=== PATIENT | female | born 1940 | race Caucasian/White ===

== ENCOUNTER 2016-10-18 18:54 | Inpatient (IN) | payer OTHER ==
--- NOTE | ~2016-10-18 | US84 ---
[id number] [facility] [address] [place], [place] [address] [id number] I MR#: [id number] Acc #: [id number] NAME: CARMELO EDLGADO : 1940 SEX: F STUDY DATE/TIME: 10/19/2016 14:02 UNIT: C5B ROOM: 562 STUDY DESCRIPTION: US LE Veins Complete Yao Stdy Attending Physician: Calin Bolivar M.D. Ordering Physician: Calin Bolivar M.D. Primary Care Physician: Calin Bolivar M.D. MEDICAL IMAGING REPORT This report is preliminary unless electronic signature is present EXAM Bilateral lower extremity venous duplex. DATE OF EXAM 10/19/2016 HISTORY Bilateral lower extremity pain and swelling for 1-1/2 years. Evaluate for deep vein thrombosis. TECHNIQUE Venous ultrasound examination of both lower extremities was performed using grayscale, spectral Doppler and color flow Doppler imaging. FINDINGS The examination is negative. There is no evidence of deep venous thrombus from the groin to the lower calf bilaterally. Visualized greater saphenous veins are also patent. IMPRESSION Negative examination. No evidence of lower extremity DVT. Dictated by... Jose Luis Willard M.D. THIS IS AN ELECTRONICALLY VERIFIED REPORT Jose Luis Willard M.D. at 10/20/2016 7:56 AM KADEEM/michael TD: 10/19/2016 22:41 JOB #: [id number] MEDICAL IMAGING REPORT COPY
--- NOTE | ~2016-10-18 | DS ---
Unit #: [id number] #: [id number] Patient: CARMELO DELGADO [id number] [address] [address] [id number] I MR#: [id number] NAME: CARMELO DELGADO. ROOM: 562 Age: 76 Sex: F Admission Date: 10/18/2016 : 1940 Discharge Date: 10/26/2016 Attending Physician: Calin Bolivar M.D. Primary Care Physician: Calin Bolivar M.D. DISCHARGE SUMMARY PRINCIPAL DISCHARGE DIAGNOSES 1. Acute on chronic respiratory failure. 2. Exacerbation of chronic obstructive pulmonary disease. 3. Acute on chronic systolic congestive heart failure. 4. Chronic atrial fibrillation. 5. Acute on chronic kidney disease. 6. Opioid-induced constipation. 7. Coronary artery disease. 8. Hypertension. 9. Chronic anemia. 10. Type 2 diabetes mellitus. 11. Lumbar spinal stenosis. 12. History of rectal cancer. 13. Status post cholecystectomy. 14. Status post total abdominal hysterectomy. PROCEDURES None. CONSULTANTS None. REASON FOR HOSPITALIZATION The patient is a 76-year-old white female with history of type 2 diabetes mellitus, hypertension, chronic atrial fibrillation, chronic respiratory failure, CHF, COPD, chronic kidney disease, stage 4, coronary artery disease, chronic anemia, lumbar spinal stenosis, history of rectal cancer, presents to the emergency room with 3 days of shortness of air, cough, congestion, left pleuritic chest pain. She had been called doxycycline over the weekend when she called me with an upper respiratory infection and was on this prior to the admission. In the emergency room, she was afebrile, had a normal white count. Chest x-ray reportedly showed left lower lobe pneumonia and the patient was admitted. Hemoglobin was 10.6 on admission. Cardiac enzymes were normal. Coags were normal. Lactic acid was normal. BUN 45, creatinine 1.8, GFR 29. BNP was 480. Influenza A and B were negative. ABGs on 2 L showed a pH of 7.354, pCO2 of 48, and a PaO2 of 76. Procalcitonin was 0.06. EKG; atrial fibrillation, 79 beats per minute, left axis deviation, inferior Q-waves, and [address]-T abnormality. Chest x-ray as described above. HOSPITAL COURSE The patient was admitted to telemetry bed. Started on IV antibiotics in the form of Rocephin and Zithromax. Placed on IV Solu-Medrol. [facility] Unit #: [id number] #: [id number] Patient: CARMELO DELGADO Miah reaves. and h.s., low-dose sliding scale insulin adjusted. Urine for streptococcal and legionella antigens were negative. Bilateral lower extremity ultrasound showed no evidence of deep vein thrombosis. CT scan of the chest without contrast showed scarring at the left posterior lung base similar to prior CT scans and PET scans without any definite pneumonia or edema. There was cardiomegaly, evidence of coronary artery bypass grafting, benign multinodular goiter, thickening and low-density change in both adrenal glands, similar to 05/12/2015, consistent with hyperplasia or adenomas. The patient developed some worsening renal function. Her Lasix was held. She was started on some low-dose IV fluids. She has rapidly improved. Currently stable on p.o. prednisone and antibiotics. Being discharged home. [facility] is to follow offices in 1 week. Healthy-heart constant-carb diet. CURRENT MEDICATIONS Omnicef 300 mg b.i.d. for an additional 2 days for full 10-day course; Advair 250/50 one puff q.12; prednisone 20 mg for 3 days, then 10 mg for 3 days; Ventolin 2 puffs q.i.d. p.r.n.; sodium bicarb 650 p.o. t.i.d. with meals; Tylenol 650 p.o. q.6 hours p.r.n. for fever; Mylanta-II 30 mL p.o. q.4 hours p.r.n. for heartburn; nystatin powder topically b.i.d. to affected areas; Coreg 3.125 mg p.o. b.i.d.; Colace 100 mg b.i.d.; MiraLAX 17 g daily; O2 2L nasal cannula p.r.n. and q.h.s.; furosemide 80 mg b.i.d.; hydralazine 12.5 mg p.o. b.i.d.; Lantus 40 units subcu q.h.s.; aspirin 81 mg daily; Percocet 10/325 one q.4 hours p.r.n. for pain; KCl 10 mEq b.i.d.; Isordil 10 mg b.i.d. Please note the patient is not on an ELISABETH inhibitor despite having systolic CHF or an ARB because of her chronic kidney disease, stage 4. She is also not on anticoagulation because of her history of rectal cancer, noncompliance, chronic anemia, chronic kidney disease, and history of iron-deficiency anemia which seems to outweigh the risk of anticoagulation, which cardiology has already agreed with on an outpatient basis. DISCHARGE INSTRUCTIONS The patient will be seen in 1 week. Call in the meantime for any problems. Dictated by... Deepthi Us/tom TD: 10/27/2016 01:54 JOB #: [id number] DISCHARGE SUMMARY Page 1 of 1 X Calin Bolivar MD X DISCHARGE SUMMARY
--- NOTE | ~2016-10-18 | NM69 ---
[facility] A Service of [facility] RADIOLOGY TEXT RESULTS PATIENT: CARMELO DELGADO LOCATION: [facility] : 41 UNIT #: [id number] AGE: [address]: Calin Bolivar MD SEX: F ORDER DR: [id number] [facility] [address] [place], [place] [address] [id number] I MR#: [id number] Acc #: [id number] NAME: CARMELO DELGADO. : 1940 SEX: F STUDY DATE/TIME: 10/19/2016 13:23 UNIT: [facility] ROOM: [facility] STUDY DESCRIPTION: NM Pulm Vent and Perf Attending Physician: Calin Bolivar M.D. Ordering Physician: Calin Bolivar M.D. Primary Care Physician: Calin Bolivar M.D. MEDICAL IMAGING REPORT This report is preliminary unless electronic signature is present EXAM Ventilation/perfusion lung scan. DATE OF STUDY 10/19/2016 COMPARISON Portable chest, 10/18/2016. CLINICAL HISTORY Short of air and difficulty breathing. Chest pain for 4 days. FINDINGS Accompanying chest radiograph shows cardiomegaly but no acute infiltrate. Ventilation images show heterogeneous ventilation and fairly poor ventilation of the left lung overall. Perfusion images show matching mild heterogeneity of pulmonary perfusion, with no segmental perfusion defects. Overall, perfusion is slightly better than ventilation bilaterally. IMPRESSION Low likelihood ratio for pulmonary embolism. No segmental ventilation/perfusion mismatches. Dictated by... Sudheer Stahl M.D. THIS IS AN ELECTRONICALLY VERIFIED REPORT [facility] A Service of [facility] RADIOLOGY TEXT RESULTS PATIENT: CARMELO DELGADO LOCATION: [facility] : 41 UNIT #: [id number] AGE: [address]: Calin Bolivar MD SEX: F ORDER DR: Sudheer Stahl M.D. at 10/21/2016 3:43 PM TEV/jt TD: 10/19/2016 19:49 JOB #: [id number] MEDICAL IMAGING REPORT COPY
--- NOTE | ~2016-10-18 | CT57 ---
[facility] A Service of [facility] RADIOLOGY TEXT RESULTS PATIENT: TRINY DELGADO LOCATION: [facility] 562-01 : 41 UNIT #: [id number] AGE: [address]: Calin Bolivar MD SEX: F ORDER DR: [id number] [facility] [address] [place], [place] [address] [id number] I MR#: [id number] Acc #: [id number] NAME: TRINY DELGADO : 1940 SEX: F STUDY DATE/TIME: 10/19/2016 09:06 UNIT: [facility] ROOM: 2 STUDY DESCRIPTION: CT Chest Wo Cont Attending Physician: Calin Bolivar M.D. Ordering Physician: Calin Bolivar M.D. Primary Care Physician: Calin Bolivar M.D. MEDICAL IMAGING REPORT This report is preliminary unless electronic signature is present EXAM CT chest without contrast 03/21/2017 at 0906 hours CLINICAL HISTORY 76-year-old woman with history of colorectal carcinoma with shortness of air for 3 days. Cough, congestion. Evaluate for left lower lobe infiltrate. Abnormal chest x-ray. COMPARISON Portable chest exam 10/18/2016, lung window images from CT abdomen and pelvis 05/12/2015, and CT images of the chest from PET/CT 04/12/2013. TECHNIQUE Helical noncontrasted images were obtained from the thoracic inlet through the adrenal glands. Sagittal and coronal reconstructions were performed. Total exam DLP 790 mGy-cm. This CT exam was performed with one or more of the following radiation dose reduction techniques: automatic exposure control, adjustment of mA and/or kV according to patient size, and iterative reconstruction. FINDINGS Images through the thoracic inlet demonstrate slight heterogeneity to the thyroid gland with tiny low-density areas seen. A multinodular goiter is favored. The overall glandular size is not significantly increased. There is no supraclavicular adenopathy. Images through the chest demonstrate median sternotomy change with CABG. The aorta is normal in caliber. There are coarse coronary calcifications present. Cardiac chambers, pericardium, and esophagus are normal. Lung window images demonstrate underlying centrilobular emphysema with upper lobe predominance. The right lung is clear. There is linear scarring at the left posterior lung base similar to the prior exam. There [facility]. [facility] A Service of [facility] RADIOLOGY TEXT RESULTS PATIENT: TRINY DELGADO LOCATION: [facility] 562-01 : 41 UNIT #: [id number] AGE: [address]: Calin Bolivar MD SEX: F ORDER DR: is no evidence of pneumonia or edema. There are no effusions. Limited views through the upper abdomen demonstrate no liver lesion. There is a low-density thickening of both left and right adrenal gland similar to prior study suggesting hyperplasia or adenomas. There is coarse atherosclerotic calcification of the upper abdominal aorta. IMPRESSION 1. There is linear scarring at the left posterior lung base similar to prior CT abdomen 05/12/2015 and PET/CT from 2012. There is no definite pneumonia or edema. 2. Cardiomegaly with CABG change. 3. Small low-density areas in the thyroid gland which is not significantly enlarged. Benign multinodular goiter is favored. 4. Thickening and low-density change in both adrenal glands similar to 05/12/2015 most consistent with hyperplasia and/or adenomas. Dictated by... Triny Mcarthur M.D. THIS IS AN ELECTRONICALLY VERIFIED REPORT Triny Mcarthur M.D. at 10/20/2016 9:29 AM PRESTON/irma TD: 10/19/2016 14:35 JOB #: [id number] MEDICAL IMAGING REPORT COPY
--- NOTE | ~2016-10-18 | EKG ---
PATIENT: CARMELO DELGADO UNIT #: [id number] Ventricular Rate: 79 BPM Atrial Rate: 250 BPM QRS Duration: 146 ms Q-T Interval: 448 ms QTC Calculation(Bezet): 513 ms Calculated R [place]: -41 degrees Calculated T [place]: 132 degrees Diagnosis Line: Atrial fibrillation Diagnosis Line: Left axis deviation Diagnosis Line: Non-specific intra-ventricular conduction delay Diagnosis Line: Left ventricular hypertrophy with QRS widening Diagnosis Line: Inferior infarct , age undetermined Diagnosis Line: T wave abnormality, consider anterolateral Diagnosis Line: ischemia Diagnosis Line: Abnormal ECG Diagnosis Line: When compared with ECG of 11-MAY-2015 18:56, Diagnosis Line: Atrial fibrillation has replaced Sinus rhythm Diagnosis Line: QRS duration has increased Diagnosis Line: Inferior infarct is now Present Diagnosis Line: T wave inversion more evident in Anterolateral Diagnosis Line: leads Diagnosis Line: Confirmed by TAYLOR JACKSON MD ([id number]) on 10/19/2016 Diagnosis Line: 7:31:12 PM INTERPRETING MD: MANUEL JUÁREZ
--- NOTE | ~2016-10-18 | HP ---
Unit #: [id number] #: [id number] Patient: CARMELO DELGADO [id number] [address] [place], [place] [address] [id number] I MR#: [id number] NAME: CARMELO DELGADO. ROOM: 44235 Age: 76 Sex: F Admission Date: 10/18/2016 : 1940 Attending Physician: Calin Bolivar M.D. Primary Care Physician: Calin Bolivar M.D. HISTORY AND PHYSICAL HISTORY OF PRESENT ILLNESS The patient is a 76-year-old white female with a history of type 2 diabetes mellitus, hypertension, chronic A-fib, chronic respiratory failure, CHF, COPD, chronic kidney disease, coronary artery disease, chronic anemia, lumbar spinal stenosis, history of rectal cancer, presents to the emergency room with shortness of air x3 days, cough, congestion, left pleuritic left chest. She called me at home over the weekend, was sent a prescription for doxycycline although at that time she was not having the chest pain in any case. In the emergency room, she was afebrile, had a normal white count. Chest x-ray reportedly shows a left lower lobe infiltrate although I have no documentation of the verbal discussion with the ER physician last night in those regards and the patient is admitted for further evaluation and treatment. The patient denies any lower extremity edema. She denies any trauma. She denies fever. She does have cough, congestion and increased wheezing and, again, she has left, somewhat pleuritic but somewhat atypical, chest pain which started soon after the URI. ALLERGIES She has stated allergies to adhesives, codeine, penicillin, sulfa, ergotamines, Levaquin, latex. MEDICATIONS Meds prior to admission: 1. Isosorbide dinitrate 10 mg b.i.d. 2. Hydralazine 12.5 mg b.i.d. 3. Coreg 3.125 mg p.o. b.i.d. 4. Cordarone 100 mg daily which is supposed to be stopped a month or so ago. 5. Enteric coated aspirin 81 mg daily. 6. Sodium bicarb 650 mg t.i.d. with meals. 7. Nystatin powder p.r.n. 8. Docusate sodium 100 mg b.i.d. 9. KCl 10 mEq b.i.d. 10. Lasix 80 mg b.i.d. 11. O2 two liters nasal cannula q. h.s. 12. Lantus 40 units subcu q. h.s. PAST MEDICAL HISTORY 1. Coronary artery disease. 2. COPD. 3. Rectal cancer. 4. Chronic atrial fibrillation. 5. Hypertension. Unit #: [id number] #: [id number] Patient: CARMELO DELGADO 6. Type 2 diabetes mellitus. 7. CHF. 8. Chronic kidney disease. 9. Lumbar spinal stenosis. SURGICAL HISTORY 1. Coronary artery bypass grafting. 2. Cholecystectomy. 3. Ovarian cyst removed. 4. Total hysterectomy. 5. Nasal polyp. 6. Bladder repair. 7. Laryngeal polyp. 8. Benign tumor of the spine. 9. Left great toe now removed. 10. Repair of left wrist fracture. SOCIAL HISTORY Prior smoker, nondrinker. No street drug use. Lives with her adult daughter. . Not employed. FAMILY HISTORY Noncontributory. PHYSICAL EXAMINATION GENERAL: She is awake, alert, oriented x3, in no acute distress. VITAL SIGNS: Temp in the ER was 98.1, pulse 89, respirations 22, blood pressure 123/62. O2 sat was 98% on 2 L. HEENT: Unremarkable. NECK: Supple without JVD, bruits, adenopathy or thyromegaly. CHEST: Diffusely decreased breath sounds with expiratory wheezes throughout. HEART: Irregularly irregular without an S3 gallop or murmur appreciated. ABDOMEN: Large, soft, nondistended, nontender with positive bowel sounds and no hepatosplenomegaly. EXTREMITIES: No clubbing, cyanosis or edema. /RECTAL: Deferred. NEUROLOGICAL: Grossly intact. DIAGNOSTIC STUDIES LABORATORY: CBC is normal except for hemoglobin of 10.6 with low indices. Cardiac enzymes normal x2 sets. PT and PTT within normal limits. Lactic acid within normal limits. CMP normal except for random blood sugar of 192, BUN of 45, creatinine of 1.8 and a GFR of 29.2. BNP is 480. Influenzae A and B, rapid screen were negative. ABGs on 2 L shows pH 7.354, pCO2 of 48, and a pAO2 of 76.5. Procalcitonin is 0.06. CARDIOVASCULAR: EKG shows A-fib at 79 beats per minute, left axis deviation, LVH, inferior Q wave in III. Nonspecific ST-T abnormality. Unit #: [id number] #: [id number] Patient: CARMELO DELGADO IMAGING: Chest x-ray reportedly again shows a left lower lobe infiltrate. IMPRESSION 1. Acute on chronic respiratory failure. 2. Left lower lobe infiltrate. 3. Pleuritic chest pain on the left. 4. Type 2 diabetes mellitus. 5. Hypertension. 6. Chronic atrial fibrillation. 7. Chronic respiratory failure. 8. Congestive heart failure. 9. Chronic obstructive pulmonary disease. 10. Chronic kidney disease, stage 4. 11. Coronary artery disease, status post coronary artery bypass grafting. 12. Chronic anemia. 13. Lumbar spinal stenosis. 14. History of rectal cancer. 15. Status post cholecystectomy. 16. Status post total abdominal hysterectomy. PLAN Again, I am not convinced that the left lower lobe infiltrate represents atypical community-acquired pneumonia. Because of the patient's kidney dysfunction, she is unable to undergo CT angiogram. Will proceed with V/Q scan, lower extremity venous Doppler, CT scan of the chest without dye. Empiric antibiotics with Zithromax and Rocephin due to her multiple allergies. She has been placed on Lovenox for DVT prophylaxis chronically. She is not a good candidate for anticoagulation because of history of noncompliance, trouble getting to the office for followup, her chronic anemia and history of rectal cancer. Will check a urine for streptococcal and legionella antigens. Use IV Solu-Medrol, mini nebs and Symbicort for bronchospasm. Accu-Cheks a.c. and h.s. Sliding scale insulin. Further evaluation pending results of the above. Dictated by Calin Bolivar M.D. PEGGY/alysha TD: 10/19/2016 08:13 JOB #: [id number] HISTORY AND PHYSICAL X Calin Bolivar MD HISTORY AND PHYSICAL
--- NOTE | ~2016-10-18 | CR72 ---
[facility] A Service of [facility] RADIOLOGY TEXT RESULTS PATIENT: CARMELO DELGADO LOCATION: [facility] : 41 UNIT #: [id number] AGE: [address]: Calin Bolivar MD SEX: F ORDER DR: [id number] [facility] [address] [place], [place] [address] [id number] I MR#: [id number] Acc #: [id number] NAME: CARMELO DELGADO. : 1940 SEX: F STUDY DATE/TIME: 10/18/2016 17:15 UNIT: CEDOF ROOM: 76768 STUDY DESCRIPTION: CR Chest Single View Portable Attending Physician: Calin Bolivar M.D. Ordering Physician: Phil Alston M.D. Primary Care Physician: Calin Bolivar M.D. MEDICAL IMAGING REPORT This report is preliminary unless electronic signature is present EXAM Portable chest, 10/18/2016 HISTORY 76-year-old female with shortness of air and left-sided chest pain for 5 days. COMPARISON Chest, 05/11/2015 FINDINGS Frontal chest demonstrates stable cardiomegaly. Mediastinum and pulmonary vasculature unremarkable. Left basilar atelectasis/infiltrate. Right lung clear. No pneumothorax. Median sternotomy wires. Right-sided Port-A-Cath. IMPRESSION 1. Stable cardiomegaly. 2. Left basilar atelectasis/infiltrate. Dictated by... Reginald Beavers M.D. THIS IS AN ELECTRONICALLY VERIFIED REPORT Reginald Beavers M.D. at 10/19/2016 6:47 PM Malorie TD: 10/19/2016 08:09 JOB #: [id number] MEDICAL IMAGING REPORT COPY
[2016-10-18 18:21] LABS: BASOPHIL% 0.1 % (0-2.5); EOSINOPHIL% 0.1 % (0.0-7.0); HEMATOCRIT 33.9 % (35.0-45.0); HEMOGLOBIN 10.6 gm/dL (12.0-16.0); LYMPHOCYTE# 0.7 X10e3 (1.0-3.5); MEAN CELL VOLUME 81.5 FL (83-96); MEAN CORPUSCULAR HEMOGLOBIN 25.4 PG (28-34); MEAN CORPUSCULAR HGB CONC 31.2 g/dL (30-36); MEAN PLATELET VOLUME 7.6 FL (6.5-11.5); MONOCYTE# 0.8 X10e3 (0-1.0); MONOCYTE% 10.6 % (3.0-12.0); NEUTROPHIL# 6.4 X10e3 (1.5-7.1); NEUTROPHIL% 80.2 % (40-75); PLATELET COUNT 291 X10e3 (140-420); RED BLOOD COUNT 4.16 X10e (3.90-5.30); RED CELL DISTRIBUTION WIDTH 18.1 % (11.0-15.5); WHITE BLOOD COUNT 7.9 X10e3 (4.0-10.5)
[2016-10-18 18:30] LABS: DIFF IND NO
[2016-10-18 18:41] LABS: PARTIAL THROMBOPLASTIN TIME 23.6 SECONDS (23.5-31.3); PROTHROMBIN TIME (PATIENT) 10.7 SECONDS (9.6-11.5)
[2016-10-18 18:42] LABS: POC - CKMB 3.8 ng/mL (0.0-7.9); POC - TROPONIN <0.05 ng/mL (<=0.05)
[~2016-10-18 18:54] MED LIST: ACETAMINOPHEN650 M4 PO; ADVAIR 250-501 EAC1 IH; ADVAIR 250-501 EACH IH; ADVAIR IH; ALBUTEROL17 G1 IH; ALBUTEROL17 GM INH; ALDACTONE25 MG PO; ALPRAZOLAM PO; ALPRAZOLAM0.25 MG PO; AMARYL2 MG PO; ASPIRIN EC81 M1 PO; ASPIRIN81 M1 PO; ASPIRIN81 MG PO; BACTROBAN22 GM TP; BUMETANIDE2 M1 PO; BUMEX2 MG PO; CARVEDILOL3.125 MG PO; CARVEDILOL6.25 MG PO; CECLOR PO; CEFTIN PO; CLINDAMYCIN PHO30 GM TP; COLACE PO; COMBIVENT RESPIM4 GM IH; COMBIVENT U/D3 M1 INH; COMBIVENT U/D3 ML INH; CORDARONE200 M1 PO; COREG12.5 MG PO; COREG3.125 MG PO; COREG6.25 MG PO; COUMADIN PO; COUMADIN7.5 MG PO; DAKIN'S MODIF1000 ML EXT; DIFLUCAN200 MG PO; DILTIAZEM ER180 M2 PO; DOCU SOFT100 M1 PO; DOCUSATE SODIU100 MG PO; DOXYCYCLINE150 MG PO; DSS100 MG PO; FERROUS GL325 ( 36 ) PO; FLAGYL250 M1 PO; FUROSEMIDE PO; FUROSEMIDE40 MG PO; FUROSEMIDE80 MG PO; HIBICLENS 4% L120 ML TOP; HUMIBID-LA600 MG PO; HYDRALAZINE HCL25 MG PO; HYDROCODON-ACE1 EAC7 PO; IMDUR-ER30 MG PO; IMDUR30 MG PO; ISORDIL PO; ISORDIL10 MG PO; KCL PO; KEFLEX500 M1 PO; LANOXIN PO; LANTUS SQ; LANTUS100 U/ML SQ; LANTUS100 U/ML SUBQ; LANTUS100 UNITS/ SUBQ; LASIX PO; LASIX20 MG PO; LISINOPRIL10 MG PO; LORTAB 10-5001 EACH PO; LOTENSIN10 MG PO; MEDROL DOSEPAK4 MG PO; METFORMIN HCL500 M1 PO; NEXIUM PO; NITROGLYCERIN0.4 MG SL; NITROLINGUAL12 G1 SL; NOVOLOG MI100 UNIT/1 SUBQ; NYSTATIN15 G1 TP; NYSTATIN5 ML PO; OXYCODON HCL-AP1 TA2 PO; OXYCODONE-ACET1 EAC1 PO; OXYGEN; PERCOCET10 PO; PERCOCET5/325 PO; PHENOL-SODIUM180 ML MM; POTASSIUM CHLO10 ME1 PO; POTASSIUM CL ER PO; PRAVASTATIN SOD40 MG PO; PREDNISONE PO; PRILOSEC20 M1 PO; SIMVASTATIN40 MG PO; SODIUM BICARBO650 MG PO; STOOL SOFTNER PO; TOPROL XL PO; VENTOLIN5 MG/ML IH; VIBRAMYCIN100 M1 PO; VICODIN 5-3001 EACH PO; ZITHROMAX PO; ZOCOR PO; [UNRECOGNIZED DRUG - OTHER] PO; [UNRECOGNIZED DRUG - REMARK]
[2016-10-18 19:01] LABS: ALBUMIN SERUM 3.8 g/dL (3.5-5.0); BILIRUBIN, DIRECT 0.1 mg/dL (0.0-0.2); BILIRUBIN,INDIRECT 0.4 mg/dL (0.0-0.9); BILIRUBIN,TOTAL 0.5 mg/dL (0.2-2.0); CALCIUM SERUM 9.1 mg/dL (8.4-10.2); CREATININE SERUM 1.8 mg/dL (0.6-1.4); GLOM FILT RATE Estimated 29.2 mL/min (>60); PROTEIN TOTAL SERUM 8.2 g/dL (6.0-8.3)
[2016-10-18 20:40] LABS: INFLUENZA A NEG (NEG); INFLUENZA B NEG (NEG)
[2016-10-18 20:54] LABS: ARTERIAL BLD GAS O2 SATURATION 92.9 % (90.0-100.0); ARTERIAL BLOOD GAS CARBOXY HB 0.9 %sat (0.0-9.0); ARTERIAL BLOOD GAS HCO3 26.8 mmol/L; ARTERIAL BLOOD GAS MET HB 1.3 %sat (0.0-2.0); ARTERIAL BLOOD GAS PCO2 48.2 mmHg (35.0-45.0); ARTERIAL BLOOD GAS pH 7.354 (7.350-7.450)
[2016-10-18 20:55] LABS: ARTERIAL BLOOD GAS ART SITE RIGHT BRACHIAL; ARTERIAL BLOOD GAS DELIVERY NASAL CANNULA; ARTERIAL BLOOD GAS PO2 76.5 mmHg (80.0-100); ARTERIAL DRAW? YES
[2016-10-18 21:56] LABS: POC - CKMB 2.8 ng/mL (0.0-7.9); POC - TROPONIN <0.05 ng/mL (<=0.05)
[2016-10-18] MEDS ORDERED: LANTUS100 U/ML SUBQ (23:05)
[2016-10-20 06:25] LABS: HEMATOCRIT 29.9 % (35.0-45.0); HEMOGLOBIN 9.2 gm/dL (12.0-16.0); MEAN CELL VOLUME 81.7 FL (83-96); MEAN CORPUSCULAR HEMOGLOBIN 25.1 PG (28-34); MEAN CORPUSCULAR HGB CONC 30.7 g/dL (30-36); MEAN PLATELET VOLUME 8.4 FL (6.5-11.5); RED BLOOD COUNT 3.66 X10e (3.90-5.30); RED CELL DISTRIBUTION WIDTH 18.2 % (11.0-15.5); WHITE BLOOD COUNT 8.2 X10e3 (4.0-10.5)
[2016-10-20 06:46] LABS: BUN/CREATININE RATIO 28.82; CALCIUM SERUM 8.8 mg/dL (8.4-10.2); CREATININE SERUM 1.7 mg/dL (0.6-1.4); GLOM FILT RATE Estimated 31.1 mL/min (>60); MAGNESIUM 2.4 mg/dL (1.6-3.0); POTASSIUM 4.4 mmol/L (3.5-5.1)
[2016-10-21 05:40] LABS: HEMATOCRIT 30.2 % (35.0-45.0); HEMOGLOBIN 9.2 gm/dL (12.0-16.0); MEAN CELL VOLUME 82.8 FL (83-96); MEAN CORPUSCULAR HEMOGLOBIN 25.2 PG (28-34); MEAN CORPUSCULAR HGB CONC 30.4 g/dL (30-36); MEAN PLATELET VOLUME 8.9 FL (6.5-11.5); RED BLOOD COUNT 3.64 X10e (3.90-5.30); RED CELL DISTRIBUTION WIDTH 18.3 % (11.0-15.5); WHITE BLOOD COUNT 11.1 X10e3 (4.0-10.5)
[2016-10-21 06:27] LABS: CALCIUM SERUM 8.8 mg/dL (8.4-10.2); CREATININE SERUM 1.8 mg/dL (0.6-1.4); GLOM FILT RATE Estimated 29.2 mL/min (>60); MAGNESIUM 2.5 mg/dL (1.6-3.0); POTASSIUM 4.4 mmol/L (3.5-5.1)
[2016-10-22 05:12] LABS: HEMATOCRIT 29.4 % (35.0-45.0); MEAN CELL VOLUME 81.7 FL (83-96); MEAN CORPUSCULAR HEMOGLOBIN 25.1 PG (28-34); MEAN CORPUSCULAR HGB CONC 30.7 g/dL (30-36); MEAN PLATELET VOLUME 8.7 FL (6.5-11.5); RED BLOOD COUNT 3.6 X10e (3.90-5.30); RED CELL DISTRIBUTION WIDTH 18.2 % (11.0-15.5); WHITE BLOOD COUNT 13.3 X10e3 (4.0-10.5)
[2016-10-22 06:03] LABS: BUN/CREATININE RATIO 30.58; CALCIUM SERUM 8.7 mg/dL (8.4-10.2); CREATININE SERUM 1.7 mg/dL (0.6-1.4); GLOM FILT RATE Estimated 31.1 mL/min (>60); POTASSIUM 4.3 mmol/L (3.5-5.1)
[2016-10-23 08:17] LABS: HEMATOCRIT 32.3 % (35.0-45.0); HEMOGLOBIN 9.8 gm/dL (12.0-16.0); MEAN CELL VOLUME 82.8 FL (83-96); MEAN CORPUSCULAR HEMOGLOBIN 25.2 PG (28-34); MEAN CORPUSCULAR HGB CONC 30.4 g/dL (30-36); MEAN PLATELET VOLUME 8.8 FL (6.5-11.5); RED BLOOD COUNT 3.91 X10e (3.90-5.30); RED CELL DISTRIBUTION WIDTH 18.2 % (11.0-15.5); WHITE BLOOD COUNT 15.3 X10e3 (4.0-10.5)
[2016-10-23 08:48] LABS: BUN/CREATININE RATIO 39.37; CALCIUM SERUM 9.4 mg/dL (8.4-10.2); CREATININE SERUM 1.6 mg/dL (0.6-1.4); GLOM FILT RATE Estimated 33.4 mL/min (>60); MAGNESIUM 2.9 mg/dL (1.6-3.0); POTASSIUM 4.8 mmol/L (3.5-5.1)
[2016-10-23 15:15] LABS: ARTERIAL BLD GAS O2 SATURATION 87.6 % (90.0-100.0); ARTERIAL BLOOD GAS CARBOXY HB 0.8 %sat (0.0-9.0); ARTERIAL BLOOD GAS HCO3 41.4 mmol/L; ARTERIAL BLOOD GAS pH 7.492 (7.350-7.450)
[2016-10-23 15:17] LABS: ARTERIAL BLOOD GAS ALLEN TEST NORMAL; ARTERIAL BLOOD GAS ART SITE LEFT RADIAL; ARTERIAL BLOOD GAS PCO2 54.1 mmHg (35.0-45.0); ARTERIAL BLOOD GAS PO2 55.6 mmHg (80.0-100); ARTERIAL DRAW? YES
[2016-10-24 06:11] LABS: HEMATOCRIT 30.9 % (35.0-45.0); HEMOGLOBIN 9.4 gm/dL (12.0-16.0); MEAN CELL VOLUME 82.4 FL (83-96); MEAN CORPUSCULAR HEMOGLOBIN 25.2 PG (28-34); MEAN CORPUSCULAR HGB CONC 30.5 g/dL (30-36); MEAN PLATELET VOLUME 9.1 FL (6.5-11.5); RED BLOOD COUNT 3.75 X10e (3.90-5.30); RED CELL DISTRIBUTION WIDTH 18.6 % (11.0-15.5); WHITE BLOOD COUNT 14.8 X10e3 (4.0-10.5)
[2016-10-24 06:57] LABS: BUN/CREATININE RATIO 35.62; CALCIUM SERUM 8.9 mg/dL (8.4-10.2); CREATININE SERUM 1.6 mg/dL (0.6-1.4); GLOM FILT RATE Estimated 33.4 mL/min (>60); POTASSIUM 4.7 mmol/L (3.5-5.1)
[2016-10-25 08:08] LABS: HEMATOCRIT 30.9 % (35.0-45.0); HEMOGLOBIN 9.5 gm/dL (12.0-16.0); MEAN CELL VOLUME 82.8 FL (83-96); MEAN CORPUSCULAR HEMOGLOBIN 25.6 PG (28-34); MEAN CORPUSCULAR HGB CONC 30.9 g/dL (30-36); MEAN PLATELET VOLUME 8.8 FL (6.5-11.5); RED BLOOD COUNT 3.73 X10e (3.90-5.30); WHITE BLOOD COUNT 12.8 X10e3 (4.0-10.5)
[2016-10-25 08:55] LABS: CALCIUM SERUM 8.7 mg/dL (8.4-10.2); CREATININE SERUM 1.5 mg/dL (0.6-1.4); POTASSIUM 4.6 mmol/L (3.5-5.1)
[2016-10-26] MEDS ORDERED: ACETAMINOPHEN325 MG PO (07:43)
[2016-10-26] MEDS ORDERED: AL-MAG HYDROX-S30 M1 PO (07:44)
[2016-10-26] MEDS ORDERED: PREDNISONE10 MG PO (07:49)
[2016-10-26] MEDS ORDERED: ADVAIR 250-501 EACH INH (07:53)
[2016-10-26] MEDS ORDERED: MIRALAX17 GM PO (07:55)
[2016-10-26] MEDS ORDERED: OMNICEF300 M1 PO (07:56)
[2016-10-26] MEDS ORDERED: PERCOCET 10/3251 TAB PO (08:00)
== END 2016-10-26 17:51 | disposition home health service (06) | DRG 189 ==
LOC: CED 18:54 → CEDOF 18:55 → C5B 10-19 09:24
PROVIDERS: Emergency Medicine; Internal Medicine
DX: J96.20 Acute and chronic respiratory failure, unspecified whether with hypoxia or hypercapnia (principal); J18.9 Pneumonia, unspecified organism; I50.23 Acute on chronic systolic (congestive) heart failure; N18.4 Chronic kidney disease, stage 4 (severe); I48.2 Chronic atrial fibrillation; I13.0 Hypertensive heart and chronic kidney disease with heart failure and stage 1 through stage 4 chronic kidney disease, or unspecified chronic kidney disease; E11.9 Type 2 diabetes mellitus without complications; J44.0 Chronic obstructive pulmonary disease with (acute) lower respiratory infection; J44.1 Chronic obstructive pulmonary disease with (acute) exacerbation; K59.03 Drug induced constipation; T40.2X5A Adverse effect of other opioids, initial encounter; I25.10 Atherosclerotic heart disease of native coronary artery without angina pectoris; Z95.1 Presence of aortocoronary bypass graft; D64.9 Anemia, unspecified; M48.06 Spinal stenosis, lumbar region; Z90.49 Acquired absence of other specified parts of digestive tract; Z90.710 Acquired absence of both cervix and uterus; Z85.048 Personal history of other malignant neoplasm of rectum, rectosigmoid junction, and anus; Z88.2 Allergy status to sulfonamides; Z88.0 Allergy status to penicillin; Z88.8 Allergy status to other drugs, medicaments and biological substances; Z88.1 Allergy status to other antibiotic agents; Z88.5 Allergy status to narcotic agent; Z91.040 Latex allergy status; R42 Dizziness and giddiness
CPT/HCPCS: 36415; 36600; 71010; 71250; 78582; 80048; 80076; 82308; 82553; 82803; 82947; 83605; 83735; 83880; 84484; 85025; 85027; 85610; 85730; 87040; 87449; 87804; 87899; 93005; 93970; 94640; 94760; 96365; 96367; 96375; 97110; 97116; 97162; 97166; 97530; 97535; 99285; A9540; A9567; G8978-GP; G8979-GP; G8987-GO; G8988-GO; G8989-GO; J0456; J0696; J1650; J1815; J2405; J2920; J2930